=== PATIENT | female | born 1990 | race Caucasian/White ===

== ENCOUNTER 2017-11-20 02:38 | Emergency (ER) | payer OTHER ==
[~2017-11-20] VITALS: Ht 165.1 cm; Wt 104.3 kg
[~2017-11-20 02:38] MED LIST: ALBU90OI INH; ALBU90OI6 INH; AMOX500 PO; ANTIHISTAMINE; ASPI325; AZIT250 PO; Amoxicillin500 MG PO; BENZ100A PO; BIRTH CONTROL PO; BUPR150ER PO; CEPH500 PO; CIPR250 PO; CIPR500 PO; CODACEE120 PO; Cipro500 MG PO; Crutch1 EACH MISC; DIPH25; DOXY100 PO; ERGO50000 PO; FEXPSEER PO; HYDACE5 PO; IBUP800 PO; LEVFLO500 PO; METR500 PO; MONT10T PO; MULVITMINE PO; NITR100 PO; NITR100CA PO; NYQUIL; NYST100TC TOP; Naprosyn500 MG PO; Norco 5-325 Ta1 EACH PO; ONDA4ODT MM; ONDA8ODT MM; OXYACE5T PO; PENVK250SU PO; PHENA200 PO; PRED10 PO; PRED20 PO; PROCODE120 PO; PROM25 PO; Phenergan/Code480 ML PO; Prednisone20 MG PO; Pyridium200 MG PO; RXHYDACE PO; RXOXYACE PO; RXPENVK250 PO; RXPROM25 PO; SPACE CHAMBER1 EACH MC; TRAM50 PO; Ventolin Soln3 ML INH; Zithromax250 MG PO
[2017-11-20] MEDS ORDERED: IBUP800 PO (04:18)
== END 2017-11-20 04:35 | disposition home or self-care (01) ==
LOC: ER 02:38
DX: M25.561 Pain in right knee (principal); J45.909 Unspecified asthma, uncomplicated; F17.210 Nicotine dependence, cigarettes, uncomplicated; Z88.2 Allergy status to sulfonamides; Z88.5 Allergy status to narcotic agent; Y04.2XXA Assault by strike against or bumped into by another person, initial encounter
CPT/HCPCS: 29505; 73564; 99283

== ENCOUNTER 2017-12-11 19:41 | Emergency (ER) | payer OTHER ==
[~2017-12-11] VITALS: Ht 165.1 cm; Wt 104.3 kg
[2017-12-11] MEDS ORDERED: HYDR1TAB94 PO (19:46)
[2017-12-11] MEDS ORDERED: Cyclobenzaprine5 MG PO (20:45)
[2017-12-11] MEDS ORDERED: Percocet 5-3251 EACH PO (20:47)
== END 2017-12-11 20:56 | disposition home or self-care (01) ==
LOC: ER 19:41
DX: M62.838 Other muscle spasm (principal); R11.2 Nausea with vomiting, unspecified; R19.7 Diarrhea, unspecified; Z88.2 Allergy status to sulfonamides; Z88.6 Allergy status to analgesic agent; F17.210 Nicotine dependence, cigarettes, uncomplicated; Z79.891 Long term (current) use of opiate analgesic
CPT/HCPCS: 96372; 99283; J1885

== ENCOUNTER 2018-02-07 11:45 | Emergency (ER) | payer OTHER ==
[~2018-02-07] VITALS: Ht 165.1 cm; Wt 108.4 kg
[~2018-02-07 11:45] MED LIST changes: +Cyclobenzaprine5 MG PO; +HYDR1TAB94 PO; +Percocet 5-3251 EACH PO
== END 2018-02-07 14:26 | disposition left against medical advice (07) ==
LOC: ER 11:45
DX: Z53.21 Procedure and treatment not carried out due to patient leaving prior to being seen by health care provider (principal)
CPT/HCPCS: 36415; 93971; 99283

== ENCOUNTER 2018-03-10 21:30 | Emergency (ER) | payer OTHER ==
[~2018-03-10] VITALS: Ht 165.1 cm; Wt 108.4 kg
== END 2018-03-11 00:36 | disposition home or self-care (01) ==
LOC: ER 21:30
DX: M25.471 Effusion, right ankle (principal); J45.909 Unspecified asthma, uncomplicated; F17.210 Nicotine dependence, cigarettes, uncomplicated; Z88.2 Allergy status to sulfonamides; Z88.5 Allergy status to narcotic agent
CPT/HCPCS: 93971; 99284

== ENCOUNTER 2018-10-25 23:02 | Emergency (ER) | payer OTHER ==
[~2018-10-25] VITALS: Ht 165.1 cm; Wt 98.4 kg
[2018-10-25] MEDS ORDERED: IBUP400 PO (23:22)
== END 2018-10-25 23:32 | disposition home or self-care (01) ==
LOC: ER 23:02
DX: M25.461 Effusion, right knee (principal); F17.210 Nicotine dependence, cigarettes, uncomplicated; Z88.2 Allergy status to sulfonamides
CPT/HCPCS: 99283

== ENCOUNTER → 2019-02-26 | Outpatient (CLI) | payer OTHER ==
[~2019-02-26] MED LIST changes: +IBUP400 PO
[2019-02-28 03:10] LABS: CHLAMYDIA TRACHOMATIS, NAA Negative (Negative); NEISSERIA GONORRHOEAE, NAA Negative (Negative)
== END | disposition home or self-care (01) ==
LOC: LAB SHORT 16:04 → LAB 16:04
PROVIDERS: Obstetrics & Gynecology
DX: Z34.81 Encounter for supervision of other normal pregnancy, first trimester (principal)
CPT/HCPCS: 87491; 87591; G0123

== ENCOUNTER → 2019-04-11 | Outpatient (CLI) | payer OTHER ==
[~2019-04-11] MED LIST changes: +AMOCLA500 PO; +Zofran4 MG PO
[2019-04-11 19:38] LABS: Source, Urine Clean Catch
[2019-04-11 19:58] LABS: Bacteria Many /hpf; Red Blood Cells, Urine 0-2 /hpf (0-2); Squamous Epithelial Cells Many /hpf (Few); White Blood Cells, Urine TNTC /hpf (0-5)
== END | disposition home or self-care (01) ==
LOC: LAB EV 19:35 → LAB SHORT 19:35
PROVIDERS: Physician Assistant
DX: R82.79 Other abnormal findings on microbiological examination of urine (principal)
CPT/HCPCS: 81015; 87086

== ENCOUNTER → 2019-04-23 | Outpatient (CLI) | payer OTHER | END | disposition home or self-care (01) | LOC: LAB 16:16 → LAB SHORT 16:16 | DX: R30.0 Dysuria (principal) | CPT/HCPCS: 87086 ==

== ENCOUNTER → 2019-09-13 | Outpatient (CLI) | payer OTHER ==
[~2019-09-13] MED LIST changes: +ACET500 PO
== END | disposition home or self-care (01) ==
LOC: LAB 17:50 → LAB SHORT 17:50
DX: Z34.83 Encounter for supervision of other normal pregnancy, third trimester (principal); Z3A.36 36 weeks gestation of pregnancy
CPT/HCPCS: 87081; 87653

== ENCOUNTER 2019-09-26 23:31 | Inpatient (IN) | payer OTHER ==
[~2019-09-26] VITALS: Ht 165.1 cm; Wt 110.0 kg
[~2019-09-26 23:31] MED LIST changes: -ACET500 PO
[2019-09-26 23:40] LABS: BASOPHILS ABSOLUTE AUTO 0.02 K/mm3 (0.00-0.23); BASOPHILS PERCENT AUTO 0 % (0-2); EOSINOPHILS ABSOLUTE AUTO 0.31 K/mm3 (0.00-0.68); EOSINOPHILS PERCENT AUTO 2 % (0-6); Hematocrit 39.8 % (33.0-51.0); Hemoglobin 12.9 g/dL (11.5-16.0); IMMATURE GRAN ABSOLUTE AUTO 0.06 K/mm3 (0.00-0.10); IMMATURE GRAN PERCENT AUTO 0 % (0-1); LYMPHOCYTES PERCENT AUTO 22 % (21-46); MONOCYTES ABSOLUTE AUTO 0.95 K/mm3 (0.16-1.47); MONOCYTES PERCENT AUTO 6 % (4-13); Mean Corpuscular HGB 27.2 pg (26.0-34.0); Mean Corpuscular HGB Conc 32.4 g/dL (31.5-36.5); Mean Corpuscular Volume 84 fL (80-100); Mean Platelet Volume 10.9 fL (9.1-12.4); NEUTROPHILS ABSOLUTE AUTO 11.22 K/mm3 (1.96-9.15); NEUTROPHILS PERCENT AUTO 70 % (41-73); Platelet Count 296 K/mm3 (150-400); RDW Coefficient Variation 13.7 % (11.7-14.2); RDW Standard Deviation 42.1 fL (35.1-46.3); Red Blood Cell Count 4.74 M/mm3 (3.80-5.20); White Blood Cell Count 16.06 K/mm3 (4.00-11.30)
[2019-09-28 05:30] LABS: BASOPHILS ABSOLUTE AUTO 0.02 K/mm3 (0.00-0.23); BASOPHILS PERCENT AUTO 0 % (0-2); EOSINOPHILS ABSOLUTE AUTO 0.22 K/mm3 (0.00-0.68); EOSINOPHILS PERCENT AUTO 2 % (0-6); Hematocrit 31.9 % (33.0-51.0); Hemoglobin 10.1 g/dL (11.5-16.0); IMMATURE GRAN ABSOLUTE AUTO 0.08 K/mm3 (0.00-0.10); IMMATURE GRAN PERCENT AUTO 1 % (0-1); LYMPHOCYTES ABSOLUTE AUTO 3.37 K/mm3 (0.84-5.20); LYMPHOCYTES PERCENT AUTO 24 % (21-46); MONOCYTES ABSOLUTE AUTO 0.94 K/mm3 (0.16-1.47); MONOCYTES PERCENT AUTO 7 % (4-13); Mean Corpuscular HGB Conc 31.7 g/dL (31.5-36.5); Mean Corpuscular Volume 85 fL (80-100); NEUTROPHILS ABSOLUTE AUTO 9.18 K/mm3 (1.96-9.15); NEUTROPHILS PERCENT AUTO 67 % (41-73); Platelet Count 239 K/mm3 (150-400); RDW Coefficient Variation 14.1 % (11.7-14.2); RDW Standard Deviation 43.8 fL (35.1-46.3); Red Blood Cell Count 3.74 M/mm3 (3.80-5.20); White Blood Cell Count 13.81 K/mm3 (4.00-11.30)
--- NOTE | 2019-09-28 08:36 | NUR ---
PT AND NB ARE BOTH B NEG BLOOD TYPE, COVERAGE OF RHOGAM NOT INDICATED
[2019-09-28] MEDS ORDERED: IBUP800 PO (10:10)
[2019-09-28] MEDS ORDERED: ACET500 PO (10:10)
== END 2019-09-28 16:45 | disposition home or self-care (01) | DRG 807 ==
LOC: BC 23:31
PROVIDERS: ADMIT Obstetrics & Gynecology
PROC: 10E0XZZ Delivery of Products of Conception, External Approach (ICD-10-PCS; principal; 2019-09-27)
PROC: 3E0R3BZ Introduction of Anesthetic Agent into Spinal Canal, Percutaneous Approach (ICD-10-PCS; 2019-09-27)
PROC: 10H07YZ Insertion of Other Device into Products of Conception, Via Natural or Artificial Opening (ICD-10-PCS; 2019-09-27)
PROC: 10907ZC Drainage of Amniotic Fluid, Therapeutic from Products of Conception, Via Natural or Artificial Opening (ICD-10-PCS; 2019-09-27)
DX: O24.429 Gestational diabetes mellitus in childbirth, unspecified control (principal); Z37.0 Single live birth; O69.81X0 Labor and delivery complicated by cord around neck, without compression, not applicable or unspecified; Z3A.38 38 weeks gestation of pregnancy
CPT/HCPCS: 36415; 51702; 82947; 85025; J0290; J1885; J2001; J2405; J2590; J3010; J7030; J7120

== ENCOUNTER 2020-03-06 10:32 | Day surgery (SDC) | payer OTHER ==
[~2020-03-06] VITALS: Ht 165.1 cm; Wt 115.4 kg
[~2020-03-06 10:32] MED LIST changes: +ACET500 PO; +ORTHO MICRONO0.35 MG PO
--- NOTE | 2020-03-06 11:25 | NUR ---
Ambulatory in Day Surgery History, Chart, Medications and Allergies reviewed before start of procedure. Patient confirms NPO status and agrees with scheduled surgery. Pre-Op teaching done. Pt verbalizes understanding.
--- NOTE | 2020-03-06 12:46 | NUR ---
PATIENT CARE TO OG STONE
--- NOTE | 2020-03-06 13:47 | NUR ---
Ambulatory in Day Surgery. Discharge instructions reviewed with patient. Patient verbalizes understanding. Copy given to patient to take home. Patient States Post-Procedure ride home has been arranged. Discharged via wheelchair to private car for ride home.
== END 2020-03-06 13:54 | disposition home or self-care (01) ==
LOC: ORSCMMR 10:32 → ORD 12:15 → ORSCMMR 12:15 → ORD 13:30 → ORSCMMR 13:54
PROVIDERS: Obstetrics & Gynecology
PROC: 0UT74ZZ Resection of Bilateral Fallopian Tubes, Percutaneous Endoscopic Approach (ICD-10-PCS; principal; 2020-03-06 12:15)
DX: Z30.2 Encounter for sterilization (principal); E66.01 Morbid (severe) obesity due to excess calories; Z68.41 Body mass index [BMI] 40.0-44.9, adult; F17.210 Nicotine dependence, cigarettes, uncomplicated
CPT/HCPCS: 88302; J0171; J1100; J2250; J2405; J2704; J3010; J7120

== ENCOUNTER 2021-04-18 18:00 | Emergency (ER) | payer OTHER ==
[~2021-04-18] VITALS: Ht 165.1 cm; Wt 108.9 kg
[2021-04-18] MEDS ORDERED: Norco 5-325 Ta1 EACH PO (19:03)
== END 2021-04-18 19:40 | disposition home or self-care (01) ==
LOC: ER 18:00
DX: S89.91XA Unspecified injury of right lower leg, initial encounter (principal); F17.210 Nicotine dependence, cigarettes, uncomplicated; Z88.2 Allergy status to sulfonamides; Z88.5 Allergy status to narcotic agent
CPT/HCPCS: 29505; 73562-RT; 99283-25; A9270

== ENCOUNTER → 2021-08-05 | Outpatient (CLI) | payer OTHER | LOC: LAB 10:27 → LAB SHORT 10:27 | DX: R30.0 Dysuria (principal); Z88.2 Allergy status to sulfonamides; Z88.5 Allergy status to narcotic agent | CPT/HCPCS: 87086 ==

== ENCOUNTER 2021-12-11 10:51 | Inpatient (IN) | payer OTHER ==
[~2021-12-11] VITALS: Ht 165.1 cm; Wt 111.0 kg
[2021-12-11] MEDS ORDERED: Ventolin/Prove6.7 GM INH (11:03)
[2021-12-11] MEDS ORDERED: ALBU2.5V5 INH (11:04)
[2021-12-11 11:10] LABS: BASOPHILS ABSOLUTE AUTO 0.04 K/mm3 (0.00-0.23); BASOPHILS PERCENT AUTO 0 % (0-2); EOSINOPHILS ABSOLUTE AUTO 0.76 K/mm3 (0.00-0.68); EOSINOPHILS PERCENT AUTO 6 % (0-6); Hematocrit 43.2 % (33.0-51.0); Hemoglobin 14.7 g/dL (11.5-16.0); IMMATURE GRAN ABSOLUTE AUTO 0.05 K/mm3 (0.00-0.10); IMMATURE GRAN PERCENT AUTO 0 % (0-1); LYMPHOCYTES PERCENT AUTO 14 % (21-46); MONOCYTES ABSOLUTE AUTO 1.16 K/mm3 (0.16-1.47); MONOCYTES PERCENT AUTO 9 % (4-13); Mean Corpuscular HGB 27.9 pg (26.0-34.0); Mean Corpuscular Volume 82 fL (80-100); Mean Platelet Volume 10.4 fL (9.1-12.4); NEUTROPHILS ABSOLUTE AUTO 9.24 K/mm3 (1.96-9.15); NEUTROPHILS PERCENT AUTO 71 % (41-73); Platelet Count 336 K/mm3 (150-400); RDW Coefficient Variation 13.4 % (11.7-14.2); RDW Standard Deviation 39.8 fL (35.1-46.3); Red Blood Cell Count 5.27 M/mm3 (3.80-5.20); White Blood Cell Count 13.05 K/mm3 (4.00-11.30)
[2021-12-11 11:34] LABS: Alanine Aminotransfer (ALT/SGP 57 U/L (12-78); Albumin, Blood 3.7 g/dL (3.4-5.0); Albumin/Globulin Ratio 0.9 (0.8-1.8); Alk Phos 66 U/L (50-136); Anion Gap 12 mmol/L (6-16); Aspartate Aminotrans (AST/SGOT 20 U/L (12-37); Bilirubin, Total 1.4 mg/dL (0.1-1.0); Blood Urea Nitrogen 7 mg/dL (8-24); Bun/Creatinine Ratio 9.3 (12.0-20.0); CO2, Blood 19 mmol/L (21-32); Calcium, Blood 9.3 mg/dL (8.5-10.1); Chloride, Blood 107 mmol/L (98-108); Creatinine, Blood 0.76 mg/dL (0.40-1.00); Globulin, Blood 4.3 g/dL (2.2-4.0); Glomerular Filtration Rate >60 (60-); Glucose, Blood 103 mg/dL (70-99); Potassium, Blood 3.2 mmol/L (3.5-5.5); Sodium, Blood 138 mmol/L (136-145)
[2021-12-11 13:50] LABS: Influenza A, PCR NEGATIVE (NEGATIVE); Influenza B, PCR NEGATIVE (NEGATIVE); Resp Syncytial Virus, PCR NEGATIVE (NEGATIVE); SARS-Cov-2 (COVID-19) PCR, MMC NEGATIVE (NEGATIVE)
[2021-12-11 16:49] LABS: PO2 Arterial 64.7 mmHg (80-100); pH Blood Arterial 7.56 (7.35-7.45)
--- NOTE | 2021-12-11 18:23 | NUR ---
ER ADMIT Pt arrived to room on NC and RT was already at the bedside with the AIRVO set and and ready. She is @ 96% on 40 LPM. She has some wheezing in her upper lobes and her respiratory rate is 24. She is calm and resting in the bed. When she arrived she was assisted into a clean gown and underwear as she had been inc of urine while in the ER from coughing. Pt reports that stress inc has been an issue since she has had her children. Her IV is patent in the left AC. She is a/ox 4 and able to make her needs known.
--- NOTE | 2021-12-11 21:49 | NUR ---
SWITCH TO NASAL CANNULA PATIENT REQUESTING TO TAKE THE AIRVO OUT OF NOSE AND ATTEMPT TO WEEN O2 REQUIREMENTS. SPOKE WITH RT, PATIENT SWITCHED TO NASAL CANNULA AT 3L. PATIENT SATING WELL AT 95% WITH NO INCREASED WORK OF BREATHING. WILL CONTINUE TO WEEN PATIENT BACK TO BASELINE OF ROOM AIR PATIENT TOLERATES.
--- NOTE | 2021-12-11 23:53 | NUR ---
AMA/SHIFT SUMMARY PATIENT LEFT AMA AROUND 2330. CALL PLACED TO HOSPITALIST IN AN ATTEMPT TO GET PATIENT DISCHARGED BUT WAS INFORMED TO LET PATIENT LEAVE AMA. RISKS AND BENEFITS EXPLAINED TO PATIENT. PAPERWORK SIGNED AND [facility] PARTS ROOM ASSISTANT AWARE. PATIENT ALERT AND ORIENTED X4. ON AIRVO AT START OF SHIFT BUT WAS WEENED TO ROOM AIR PRIOR TO LEAVING AMA. VITALS STABLE. ALL BUT APPROXIMATELY 35mls OF POTASSIUM INFUSED. PATIENT STATED "I FEEL BETTER AND DO NOT WANT TO TAKE UP A BED IF IT IS NEEDED". DENIES SOB. NO WHEEZING NOTED DURING INITIAL ASSESSMENT.
== END 2021-12-11 23:20 | disposition left against medical advice (07) | DRG 202 ==
LOC: ER 10:51 → PCU 18:18
PROVIDERS: Emergency Medicine; ADMIT Internal Medicine
DX: J45.902 Unspecified asthma with status asthmaticus (principal); Z68.41 Body mass index [BMI] 40.0-44.9, adult; Z53.29 Procedure and treatment not carried out because of patient's decision for other reasons; Z88.2 Allergy status to sulfonamides; Z88.8 Allergy status to other drugs, medicaments and biological substances; Z20.822 Contact with and (suspected) exposure to COVID-19; E66.01 Morbid (severe) obesity due to excess calories; E87.6 Hypokalemia; F41.9 Anxiety disorder, unspecified; F17.210 Nicotine dependence, cigarettes, uncomplicated
CPT/HCPCS: 0241U; 36600; 71045; 80053; 82803; 85025; 93005; 93010; 94644; 96365; 96375; 99285-25; J1885; J2060; J2930; J3475; J3480; J7030

== ENCOUNTER → 2022-05-03 | Outpatient (CLI) | payer OTHER ==
[~2022-05-03] MED LIST changes: +ALBU2.5V5 INH; +Ventolin/Prove6.7 GM INH
[2022-05-04 15:10] LABS: HPV 16 Negative (Negative); HPV 18 Negative (Negative); HPV OTHER HR TYPES Negative (Negative)
== END | disposition home or self-care (01) ==
LOC: LAB SHORT 11:18 → LAB 11:18
PROVIDERS: Obstetrics & Gynecology
DX: Z12.4 Encounter for screening for malignant neoplasm of cervix (principal)
CPT/HCPCS: 87624; G0123

== ENCOUNTER → 2022-12-19 | Outpatient (CLI) | payer OTHER | LOC: LAB SHORT 11:07 | DX: N39.0 Urinary tract infection, site not specified (principal) | CPT/HCPCS: 87077; 87086; 87186 ==

== ENCOUNTER 2024-01-22 16:31 | Emergency (ER) | payer OTHER ==
[~2024-01-22] VITALS: Ht 165.1 cm; Wt 72.1 kg
[2024-01-22 16:41] VITALS: BP 139/108
[2024-01-22 17:34] LABS: BASOPHILS ABSOLUTE AUTO 0.03 K/mm3 (0.00-0.23); BASOPHILS PERCENT AUTO 0 % (0-2); EOSINOPHILS ABSOLUTE AUTO 0.04 K/mm3 (0.00-0.68); EOSINOPHILS PERCENT AUTO 1 % (0-6); Hematocrit 43.2 % (33.0-51.0); Hemoglobin 14.9 g/dL (11.5-16.0); IMMATURE GRAN ABSOLUTE AUTO 0.02 K/mm3 (0.00-0.10); IMMATURE GRAN PERCENT AUTO 0 % (0-1); LYMPHOCYTES PERCENT AUTO 27 % (21-46); MONOCYTES ABSOLUTE AUTO 0.56 K/mm3 (0.16-1.47); MONOCYTES PERCENT AUTO 7 % (4-13); Mean Corpuscular HGB 28.7 pg (26.0-34.0); Mean Corpuscular HGB Conc 34.5 g/dL (31.5-36.5); Mean Corpuscular Volume 83 fL (80-100); Mean Platelet Volume 9.8 fL (9.1-12.4); NEUTROPHILS ABSOLUTE AUTO 5.04 K/mm3 (1.96-9.15); NEUTROPHILS PERCENT AUTO 65 % (41-73); Platelet Count 295 K/mm3 (150-400); RDW Coefficient Variation 12.5 % (11.7-14.2); RDW Standard Deviation 37.7 fL (35.1-46.3); Red Blood Cell Count 5.19 M/mm3 (3.80-5.20); White Blood Cell Count 7.79 K/mm3 (4.00-11.30)
[2024-01-22 17:52] LABS: Albumin/Globulin Ratio 1.1 (0.8-1.8); Bilirubin, Total 1.8 mg/dL (0.1-1.0); Bun/Creatinine Ratio 10.3 (12.0-20.0); Calcium, Blood 9.8 mg/dL (8.5-10.1); Creatinine, Blood 0.77 mg/dL (0.40-1.00); Globulin, Blood 3.7 g/dL (2.2-4.0); Potassium, Blood 3.5 mmol/L (3.5-5.5); Total Protein, Blood 7.7 g/dL (6.4-8.2)
== END 2024-01-22 19:27 | disposition left against medical advice (07) ==
LOC: ER 16:31
PROVIDERS: Student in an Organized Health Care Education/Training Program
DX: Z53.21 Procedure and treatment not carried out due to patient leaving prior to being seen by health care provider (principal)
CPT/HCPCS: 80053; 85025; 93005; 93010

== ENCOUNTER → 2024-02-04 | Outpatient (CLI) | payer OTHER | END | disposition home or self-care (01) | LOC: LAB 10:40 → LAB SHORT 10:40 | DX: N39.0 Urinary tract infection, site not specified (principal) | CPT/HCPCS: 87086 ==

== ENCOUNTER 2024-05-06 16:25 | Emergency (ER) | payer OTHER ==
[~2024-05-06] VITALS: Ht 165.1 cm; Wt 69.0 kg
[2024-05-06 16:35] VITALS: BP 115/80
[2024-05-06] MEDS ORDERED: Lidocaine 2% Viscous Soln 15 ML UDC PO ONE (16:55)
[2024-05-06] MEDS ORDERED: Atropine/Scopalam/Hyoscam/PB 5 ML UDC PO ONE (16:55)
[2024-05-06] MEDS ORDERED: Mag Hydrox/AL Hydrox/Simeth 30 ML UDC PO ONE (16:55)
[2024-05-06] MEDS ORDERED: CARAFATE1 GM/10 M1 PO (17:45)
== END 2024-05-06 18:09 | disposition home or self-care (01) ==
LOC: ER 16:25
DX: K21.9 Gastro-esophageal reflux disease without esophagitis (principal); Z88.2 Allergy status to sulfonamides; Z88.5 Allergy status to narcotic agent; J45.909 Unspecified asthma, uncomplicated; F17.210 Nicotine dependence, cigarettes, uncomplicated
CPT/HCPCS: A9270

== ENCOUNTER 2024-12-10 09:16 | Emergency (ER) | payer OTHER ==
[~2024-12-10] VITALS: Ht 165.1 cm; Wt 63.5 kg
[~2024-12-10 09:16] MED LIST changes: +CARAFATE1 GM/10 M1 PO
[2024-12-10] MEDS ORDERED: Ipratropium/Albuterol SulF 2.5-0.5MG/3 ML Amp INH ONE (09:25)
[2024-12-10] MEDS ORDERED: Acetaminophen 500 MG Tab PO ONE (09:25)
[2024-12-10] MEDS ORDERED: PredniSONE 20 MG Tab PO ONE (09:25)
[2024-12-10 10:55] LABS: Influenza B, PCR NEGATIVE (NEGATIVE); Resp Syncytial Virus, PCR NEGATIVE (NEGATIVE); SARS-Cov-2 (COVID-19) PCR, MMC NEGATIVE (NEGATIVE)
[2024-12-10 10:58] LABS: Influenza A, PCR POSITIVE (NEGATIVE)
[2024-12-10] MEDS ORDERED: Ondansetron HCl 2 MG / ML 2ML Vial IV ONE (11:35)
[2024-12-10] MEDS ORDERED: Albuterol 2.5 MG/3 ML VIAL INH SCH (11:35)
[2024-12-10] MEDS ORDERED: ONDA4ODT MM (14:00)
[2024-12-10] MEDS ORDERED: METO10 PO (14:00)
[2024-12-10] MEDS ORDERED: PRED20 PO (14:00)
[2024-12-10 14:45] VITALS: BP 123/71
== END 2024-12-10 14:49 | disposition home or self-care (01) ==
LOC: ER 09:16
PROVIDERS: Student in an Organized Health Care Education/Training Program
DX: J45.901 Unspecified asthma with (acute) exacerbation (principal); J10.1 Influenza due to other identified influenza virus with other respiratory manifestations; F17.290 Nicotine dependence, other tobacco product, uncomplicated; Z88.2 Allergy status to sulfonamides; Z88.5 Allergy status to narcotic agent
CPT/HCPCS: 0241U; 71046; 94640; 94664; 96374; 99285-25; A9270; J2405; J7512

== ENCOUNTER → 2025-02-05 | Outpatient (CLI) | payer OTHER ==
[~2025-02-05] MED LIST changes: +METO10 PO
[2025-02-09 02:21] LABS: CREATININE,URINE - PER 24H 1162 mg/d (700-1600); CREATININE,URINE - PER VOLUME 83 mg/dL; HOURS COLLECTED 24 hr; METANEPHRINE,UR - RATIO TO CRT 169 ug/g CRT (0-300); METANEPHRINE,URINE - PER 24H 196 ug/d (36-229); METANEPHRINE,URN - PER VOLUME 140 ug/L; NORMETANEPHRINE,U - PER VOLUME 233 ug/L; NORMETANEPHRINE,URN - PER 24H 326 ug/d (95-650); NORMETANEPHRINE,URN/CRT RATIO 281 ug/g CRT (0-400); TOTAL VOLUME 1400 mL
== END | disposition home or self-care (01) ==
LOC: LAB SHORT 05:45 → LAB 05:45
PROVIDERS: Family Medicine
DX: R55 Syncope and collapse (principal)
CPT/HCPCS: 81050; 83835

== ENCOUNTER 2025-02-12 09:55 | Emergency (ER) | payer OTHER ==
[~2025-02-12] VITALS: Ht 165.1 cm; Wt 64.4 kg
[2025-02-12 10:13] VITALS: BP 141/85
[2025-02-12] MEDS ORDERED: Prochlorperazine Edisylate 10 mg Vial IV ONE (10:20)
[2025-02-12] MEDS ORDERED: NS 1,000 ML IV SCH (10:20)
[2025-02-12] MEDS ORDERED: Acetaminophen 500 MG Tab PO ONE (10:20)
[2025-02-12] MEDS ORDERED: DiphenhydrAMINE HCl 50 MG/ML 1ML Vial IV ONE (10:20)
[2025-02-12 11:07] LABS: BASOPHILS ABSOLUTE AUTO 0.05 K/mm3 (0.00-0.23); BASOPHILS PERCENT AUTO 1 % (0-2); EOSINOPHILS PERCENT AUTO 20 % (0-6); Hematocrit 48.4 % (33.0-51.0); Hemoglobin 15.7 g/dL (11.5-16.0); IMMATURE GRAN ABSOLUTE AUTO 0.02 K/mm3 (0.00-0.10); IMMATURE GRAN PERCENT AUTO 0 % (0-1); LYMPHOCYTES PERCENT AUTO 28 % (21-46); MONOCYTES ABSOLUTE AUTO 0.57 K/mm3 (0.16-1.47); MONOCYTES PERCENT AUTO 6 % (4-13); Mean Corpuscular HGB 28.2 pg (26.0-34.0); Mean Corpuscular HGB Conc 32.4 g/dL (31.5-36.5); Mean Corpuscular Volume 87 fL (80-100); Mean Platelet Volume 9.5 fL (9.1-12.4); NEUTROPHILS ABSOLUTE AUTO 4.47 K/mm3 (1.96-9.15); NEUTROPHILS PERCENT AUTO 46 % (41-73); Platelet Count 300 K/mm3 (150-400); RDW Coefficient Variation 13.4 % (11.7-14.2); RDW Standard Deviation 42.7 fL (35.1-46.3); Red Blood Cell Count 5.57 M/mm3 (3.80-5.20); White Blood Cell Count 9.71 K/mm3 (4.00-11.30)
[2025-02-12 11:36] LABS: Albumin, Blood 4.2 g/dL (3.4-5.0); Bilirubin, Total 1.3 mg/dL (0.1-1.0); Bun/Creatinine Ratio 15.9 (12.0-20.0); Calcium, Blood 9.3 mg/dL (8.5-10.1); Creatinine, Blood 0.69 mg/dL (0.40-1.00); Globulin, Blood 4.1 g/dL (2.2-4.0); Potassium, Blood 4.2 mmol/L (3.5-5.5); Total Protein, Blood 8.3 g/dL (6.4-8.2)
== END 2025-02-12 11:45 | disposition left against medical advice (07) ==
LOC: ER 09:55
PROVIDERS: Emergency Medicine
DX: R51.9 Headache, unspecified (principal); R20.2 Paresthesia of skin; M25.511 Pain in right shoulder; J45.909 Unspecified asthma, uncomplicated; F17.290 Nicotine dependence, other tobacco product, uncomplicated; Z79.52 Long term (current) use of systemic steroids; Z79.899 Other long term (current) drug therapy; Z88.2 Allergy status to sulfonamides; Z88.5 Allergy status to narcotic agent
CPT/HCPCS: 70450; 80053; 85025; 96374; 96375; 99284-25; A9270; J0780; J1200; J7030